=== PATIENT | female | born 1970 | race Caucasian/White ===

== ENCOUNTER 2017-05-15 17:05 | Emergency (ER) | payer MEDICAID ==
[~2017-05-15 17:05] MED LIST: ASPI81TA82 PO; ATEN-100 PO; ATOR40TA PO; BACL10TA PO; BENA25TA8 PO; BETH25 PO; BISA10SU8 PR; CETI10 PO; FURO1TAB93 PO; GABA400C5 PO; LANTUS2P SQ; LEVA500T PO; LORA-392 PO; NITR0.4S SL; NOVOLOGP2 SQ; PERC5TAB12 PO; PLAV75TA PO; POLY119S PO; PROT40TA PO; SERO50TA PO; THERM PO; VITA-83 PO; ZINC220T PO; ZOFR4TAB3 SL; [UNRECOGNIZED DRUG - CODE] IV; [UNRECOGNIZED DRUG - CODE] SQ
[2017-05-15] MEDS ORDERED: SODIUM CHLOR 0.9% 1000 ML INJ 1,000 ML IV SCH (17:14)
[2017-05-15] MEDS ORDERED: ONDANSETRON HCL 4 MG/2 ML VIAL IVP ONE (17:15)
[2017-05-15] MEDS ORDERED: SODIUM CHLORIDE 0.9% FLUSH 10 ML FLUSH IV FLUSH PRN (17:15)
[2017-05-15] MEDS ORDERED: FAMOTIDINE 20 MG/2 ML VIAL IV PUSH ONE (17:15)
--- NOTE | 2017-05-15 17:33 | PD ---
HPI Chief Complaint: GI Complaint Time Seen by Provider: 17:14 Travel History International Travel<30 days: No Contact w/Intl Traveler<30days: No Traveled to known affect area: No History of Present Illness HPI Patient is a 47-year-old female who presents to emergency room complaints of abdominal pain with nausea and vomiting. She reports that she has been feeling sick for the past few weeks, reports that she was seen at an outside hospital, reports that no one has been able to figure out why she is so sick. Reports that she is feeling nauseous, reports that she has been vomiting, patient reports that today, she has not been able to keep anything down. Patient reports no fevers or chills, denies any sick contacts. Patient reports diffuse abdominal pain. Patient with no chest pain or shortness of breath, denies any diarrhea. Patient denies any chest pain or shortness of breath. PFSH Past Medical History Anemia: Yes Asthma: Yes Autoimmune Disease: No Blood Disorders: No Anxiety: Yes Depression: No Cancer: No Cardiac Catheterization: Yes (1 STENT) Cardiovascular Problems: Yes (CAD) High Cholesterol: Yes Chest Pain: Yes Congestive Heart Failure: No Cerebrovascular Accident: Yes Coronary Artery Disease: Yes Diabetes: Yes Diminished Hearing: No Endocrine: Yes GERD: Yes Genitourinary: Yes Hypertension: Yes Immune Disorder: No Musculoskeletal: Yes (FX LEFT ANKLE) Neurologic: Yes (DIABETIC NEUROPATHY) Psychiatric: Yes Reproductive: No Respiratory: Yes Migraines: Yes Myocardial Infarction: Yes Renal Failure: Yes Thyroid Disease: No : 3 Para: 1 Miscarriage: 2 Past Surgical History AICD: No Appendectomy: Yes Arteriovenous Shunt: No Body Medical Devices: LEFT ANKLE ORIF WITH EXPOSED HARDWARE Section: Yes Cholecystectomy: Yes Insulin Pump: No Joint Replacement: No Oral Surgery: Yes (TEETH REMOVED) Pacemaker: No Tonsillectomy: Yes Other Surgery: Yes Social History Alcohol Use: No Tobacco Use: No Substance Use: No Allergies-Medications (Allergen,Severity, Reaction): Coded Allergies: cefazolin (Unverified Allergy, Severe, 03/11/17) SOB codeine (Unverified Allergy, Severe, SWEATS AND SHAKES, 03/11/17) hydromorphone (Unverified Allergy, Severe, 03/11/17) SOB morphine (Unverified Allergy, Severe, SWEATS AND SHAKES, 03/11/17) oxacillin (Unverified Allergy, Severe, 03/11/17) SOB tramadol (Unverified Allergy, Severe, 03/11/17) SOB meperidine (Unverified Allergy, Intermediate, SWELLING AT INJECTION SITE, 03/11/17) adhesive (Unverified Adverse Reaction, Severe, 03/11/17) SKIN IRRITATION Uncoded Allergies: PLASTIC TAPE (Allergy, Mild, RASH, 09/15/07) Reported Meds & Prescriptions Reported Meds & Active Scripts Active Percocet 5-325 mg (Oxycodone/Acetaminophen) Oxycodone 5/325 Acetaminophen Tab 1- 2 Tab PO Q4H PRN 30 Days Reported Zinc Sulfate 220 Mg Tab 220 Mg PO DAILY 14 Days Vitamin C (Calcium Ascorbate) 500 Mg Tab 500 Mg PO BID Thera M Plus (Multivitamins/Minerals Therap) 1 Tab Tab 1 Tab PO DAILY Dulcolax (Bisacodyl) 10 Mg Supp 20 Mg LA DAILY PRN Benadryl 25 mg tab (Diphenhydramine HCl) 25 Mg Tab 25 Mg PO Q8 PRN Zyrtec 10 Mg Tab (Cetirizine HCl) 10 Mg Tab 10 Mg PO DAILY Vancomycin 1 Gm Addvantage (Vancomycin HCl) 1 Gm Inj 1 Gm IV Q12H Seroquel 50 mg (Quetiapine Fumarate) 50 Mg Tab 50 Mg PO DAILY Protonix (Pantoprazole Sodium) 40 Mg Tab 40 Mg PO DAILY Miralax 119 Gm Bottle (Polyethylene Glycol) 119 Gm Powd 17 Gm PO DAILY 17 GRAMS = 1 TABLESPOON DISSOLVED IN 4 TO 8 OUNCES OF BEVERAGE Plavix (Clopidogrel Bisulfate) 75 Mg Tab 75 Mg PO DAILY Zofran ODT (Ondansetron HCl) 4 Mg Tab 4 Mg SL Q4 PRN FOR NAUSEA/VOMITING Novolog (Insulin Aspart) 100 Units/Ml Inj 5 Units SQ TIDAC Nitroquick (Nitroglycerin) 0.4 Mg Sub 0.4 Mg SL DIRECTED PRN Atorvastatin 40 mg (Atorvastatin Calcium) 40 Mg Tab 40 Mg PO HS Levaquin 500 Mg Tab (Levofloxacin) 500 Mg Tab 500 Mg PO DAILY Lasix (Furosemide) 40 Mg Tab 40 Mg PO DAILY Lantus (Insulin Glargine) 100 Units/Ml Inj 55 Units SQ HS Heparin 10,000 Units/Ml-Iv Add (Heparin Sodium (Porcine)) 10,000 Units/Ml Inj 5 ,000 Units SQ Q12 Gabapentin 400 Mg Cap 400 Mg PO TID Urecholine (Bethanechol Chloride) 25 Mg Tab 25 Mg PO TID Lioresal (Baclofen) 10 Mg Tab 5 Mg PO QID Ativan (Lorazepam) 0.5 Mg Tab 0.5 Mg PO Q8 PRN Atenolol 25 Mg Tab 25 Mg PO BID Aspir-81 (Aspirin) 81 Mg Tab 81 Mg PO DAILY Review of Systems General / Constitutional: No: Fever, Chills Eyes: No: Visual changes HENT: No: Headaches Cardiovascular: No: Chest Pain or Discomfort Respiratory: No: Shortness of Breath Gastrointestinal: Positive: Nausea, Vomiting, Abdominal Pain, No: Diarrhea Genitourinary: No: Dysuria Musculoskeletal: No: Pain Skin: No Rash Neurologic: No: Weakness Psychiatric: No: Depression Endocrine: No: Polydipsia Hematologic/Lymphatic: No: Easy Bruising Physical Exam Narrative GENERAL: Mild distress SKIN: Focused skin assessment warm/dry. HEAD: Atraumatic. Normocephalic. EYES: Pupils equal and round. No scleral icterus. No injection or drainage. ENT: No nasal bleeding or discharge. Mucous membranes pink and moist. NECK: Trachea midline. No JVD. CARDIOVASCULAR: Regular rate and rhythm. No murmur appreciated. RESPIRATORY: No accessory muscle use. Clear to auscultation. Breath sounds equal bilaterally. GASTROINTESTINAL: Abdomen soft, diffusely tender abdomen with guarding on exam. MUSCULOSKELETAL: Patient with left sided BKA. No clubbing. No cyanosis. No edema. NEUROLOGICAL: Awake and alert. No obvious cranial nerve deficits. Motor grossly within normal limits. Normal speech. PSYCHIATRIC: Flat mood and affect; insight and judgment normal. Data Data Last Documented VS Vital Signs Date Time Temp Pulse Resp B/P (MAP) Pulse Ox O2 Delivery O2 Flow Rate FiO2 05/15/17 18:48 107 11 179/95 (123) 98 Room Air 05/15/17 17:48 98.5 Orders Orders Complete Blood Count With Diff (05/15/17 17:14) Comprehensive Metabolic Panel (05/15/17 17:14) Lipase (05/15/17 17:14) Prothrombin Time / Inr (Pt) (05/15/17 17:14) Act Partial Throm Time (Ptt) (05/15/17 17:14) Urinalysis - C+S If Indicated (05/15/17 17:14) Ct Abd/Pel W Iv Contrast(Rout) (05/15/17 17:14) Iv Access Insert/Monitor (05/15/17 17:14) Ecg Monitoring (05/15/17 17:14) Oximetry (05/15/17 17:14) NPO (05/15/17 17:14) Ondansetron Inj (Zofran Inj) (05/15/17 17:15) Sodium Chlor 0.9% 1000 Ml Inj (Ns 1000 M (05/15/17 17:14) Sodium Chloride 0.9% Flush (Ns Flush) (05/15/17 17:15) Electrocardiogram (05/15/17 17:14) Famotidine Inj (Pepcid Inj) (05/15/17 17:15) Ed Urine Pregnancytest Poc (05/15/17 17:14) Vascular Access Team Consult/P PRN (05/15/17 17:24) Vascular Poc Ultrasound (05/15/17 ) Labs Laboratory Tests Test 05/15/17 17:45 Urine Color LIGHT-YELLOW Urine Turbidity CLEAR Urine pH 5.5 Urine Specific [place] 1.024 Urine Protein 30 mg/dL Urine Glucose (UA) 1000 mg/dL Urine Ketones 40 mg/dL Urine Occult Blood SMALL Urine Nitrite NEG Urine Bilirubin NEG Urine Urobilinogen LESS THAN 2.0 MG/DL Urine Leukocyte Esterase NEG Urine RBC 1 /hpf Urine WBC 1 /hpf Urine Squamous Epithelial Cells 1 /hpf Urine Amorphous Sediment RARE Microscopic Urinalysis Comment CULT NOT INDICATED MDM Medical Decision Making Medical Screen Exam Complete: Yes Emergency Medical Condition: Yes Medical Record Reviewed: Yes Differential Diagnosis Gastritis, gastroenteritis, electrolyte abnormality, gastric ulcer, colitis, esophagitis Narrative Course 47-year-old female with complaints of nausea, vomiting and abdominal pain for the past few weeks. Patient reports that over the past day, she has 2 episodes of emesis, request that she has not been able to eat or drink anything due to her nausea and vomiting and abdominal pain. Patient is diffusely tender to her abdomen on evaluation. Patient was placed on a threat monitoring analyst upon arrival to the emergency room. An IV line was established. CBC, CMP, CT of the abdomen and pelvis with IV contrast ordered. IV fluids as well as antiemetics were ordered for her as well. Plan to monitor patient on a threat monitoring analyst Patient signed out to oncoming physician at change of shift Nitza Rizo DO May 15, 2017 17:33
[2017-05-15 17:48] VITALS: BP 159/65; PULSE 108; RESP 12; TEMP 98.5; O2SAT 97
[2017-05-15 18:48] VITALS: BP 179/95; PULSE 107; RESP 11; O2SAT 98
[2017-05-15 18:48] LABS: BLOOD, URINE SMALL (NEG); COMMENT (UR) CULT NOT INDICATED; CULTURE IF INDICATED CULT NOT INDICATED; GLUCOSE,URINE 1000 mg/dL (NEG); KETONE, URINE 40 mg/dL (NEG); NITRITE,URINE NEG (NEG); PH, URINE 5.5 (5.0-8.5); SQUAMOUS EPITHELIAL CELL URINE 1 /hpf (0-5); URINE COLOR LIGHT-YELLOW (YELLW/STRAW)
[2017-05-15 19:16] LABS: BASOPHIL % 0.2 % (0.0-2.0); HEMATOCRIT 38.5 % (35.0-46.0); HEMO FLAGS DIFF FINAL; LYMPHOCYTE # 1.3 TH/MM3 (1.0-4.8); MEAN CELL VOLUME 88.9 FL (80.0-100.0); MEAN CORPUSCULAR HEMOGLOBIN 30.3 PG (27.0-34.0); MONO % 2.7 % (0.0-8.0); NEUT % 89.1 % (16.0-70.0); PLATELET COUNT 327 TH/MM3 (150-450); RED BLOOD COUNT 4.33 MIL/MM3 (4.00-5.30); WHITE BLOOD COUNT 15.7 TH/MM3 (4.0-11.0)
[2017-05-15 19:22] LABS: APTT (PATIENT) 22.8 SEC (24.3-30.1)
[2017-05-15 19:41] LABS: ALKALINE PHOSPHATASE 91 U/L (45-117); ALT (GPT) 17 U/L (10-53); ANION GAP 14 MEQ/L (5-15); AST (GOT) 18 U/L (15-37); BICARBONATE 22.9 MEQ/L (21.0-32.0); BLOOD UREA NITROGEN 48 MG/DL (7-18); CHLORIDE 95 MEQ/L (98-107); GLOMERULAR FILTRATION RATE 40 ML/MIN (>89); POTASSIUM 5.1 MEQ/L (3.5-5.1); SODIUM (NA) 132 MEQ/L (136-145); TOTAL BILIRUBIN ADULT 0.4 MG/DL (0.2-1.0)
[2017-05-15] MEDS ORDERED: SODIUM CHLOR 0.9% 1000 ML INJ 1,000 ML IV ONE (20:00)
[2017-05-15] MEDS ORDERED: INSULIN HUMAN REGULAR 1,000 UNITS/10 ML VIAL SQ ONE (20:00)
[2017-05-15] MEDS ORDERED: IOHEXOL 350 MG/ML 10 ML VIAL (for RAD DIAG) IVCONTRAST ONE (20:16)
--- NOTE | 2017-05-15 20:29 | RADRPT ---
EXAM DATE/TIME: 05/15/2017 20:04 [facility] COMPARISON: CT ABDOMEN & PELVIS W/O CONTRAST, September 29, 2014, 1:58. INDICATIONS : Diffuse abdominal pain with nausea and vomiting. IV CONTRAST: 70 cc Omnipaque 350 (iohexol) IV ORAL CONTRAST: No oral contrast ingested. RADIATION DOSE: 10.21 CTDIvol (mGy) MEDICAL HISTORY : Cardiovascular disease. Hypertension. Diabetes. Renal failure. CVA. [place]. SURGICAL HISTORY : Appendectomy. Cholecystectomy. section. ENCOUNTER: Initial ACUITY: 2 days PAIN SCALE: 10/10 LOCATION: All quadrants. TECHNIQUE: Volumetric scanning of the abdomen and pelvis was performed. Using automated exposure control and ad justment of the mA and/or kV according to patient size, radiation dose was kept as low as reasonably achievable to obtain optimal diagnostic quality images. DICOM format image data is available electro nically for review and comparison. FINDINGS: LOWER LUNGS: The visualized lower lungs are clear. LIVER: Homogeneous density without lesion. There is no dilation of the biliary tree. Clips in place prior c holecystectomy SPLEEN: Normal size without lesion. PANCREAS: Within normal limits. KIDNEYS: Normal in size and shape. There is no mass, stone or hydronephrosis. ADRENAL GLANDS: Within normal limits. VASCULAR: There is no aortic aneurysm. BOWEL/MESENTERY: The stomach, small bowel, and colon demonstrate no acute abnormality. There is no free intraperitone al air or fluid. Clips in place prior appendectomy ABDOMINAL WALL: Within normal limits. RETROPERITONEUM: There is no lymphadenopathy. BLADDER: No wall thickening or mass. REPRODUCTIVE: Within normal limits. INGUINAL: There is no lymphadenopathy or hernia. MUSCULOSKELETAL: Within normal limits for patient age. CONCLUSION: No acute intra-abdominal or pelvic process. Prior cholecystectomy and appendectomy. Dennis Brown MD on May 15, 2017 at 20:23 Board Certified Radiologist. This report was verified electronically.
[2017-05-15] MEDS ORDERED: diphenhydrAMINE HCL 50 MG/ML VIAL IV PUSH ONE (20:45)
[2017-05-15] MEDS ORDERED: PROMETHAZINE INJ 25 MG/ML VIAL IM ONE (20:45)
--- NOTE | 2017-05-15 22:20 | PD ---
Physical Exam Narrative Patient signed out to me by Dr. Rizo. Please see her documentation for complete details. Briefly, patient is a 47-year-old female complaining of abdominal pain with nausea and vomiting. Belly is soft and nontender. Data Data Last Documented VS Vital Signs Date Time Temp Pulse Resp B/P (MAP) Pulse Ox O2 Delivery O2 Flow Rate FiO2 05/15/17 18:48 107 11 179/95 (123) 98 Room Air 05/15/17 17:48 98.5 Orders Orders Complete Blood Count With Diff (05/15/17 17:14) Comprehensive Metabolic Panel (05/15/17 17:14) Lipase (05/15/17 17:14) Prothrombin Time / Inr (Pt) (05/15/17 17:14) Act Partial Throm Time (Ptt) (05/15/17 17:14) Urinalysis - C+S If Indicated (05/15/17 17:14) Ct Abd/Pel W Iv Contrast(Rout) (05/15/17 17:14) Iv Access Insert/Monitor (05/15/17 17:14) Ecg Monitoring (05/15/17 17:14) Oximetry (05/15/17 17:14) NPO (05/15/17 17:14) Ondansetron Inj (Zofran Inj) (05/15/17 17:15) Sodium Chlor 0.9% 1000 Ml Inj (Ns 1000 M (05/15/17 17:14) Sodium Chloride 0.9% Flush (Ns Flush) (05/15/17 17:15) Electrocardiogram (05/15/17 17:14) Famotidine Inj (Pepcid Inj) (05/15/17 17:15) Ed Urine Pregnancytest Poc (05/15/17 17:14) Vascular Access Team Consult/P PRN (05/15/17 17:24) Vascular Poc Ultrasound (05/15/17 ) Insulin Human Regular Inj (Novolin R Inj (05/15/17 20:00) Sodium Chlor 0.9% 1000 Ml Inj (Ns 1000 M (05/15/17 20:00) Iohexol 350 Inj (Omnipaque 350 Inj) (05/15/17 20:16) Diphenhydramine Inj (Benadryl Inj) (05/15/17 20:45) Promethazine Inj (Phenergan Inj) (05/15/17 20:45) Labs Laboratory Tests Test 05/15/17 17:45 05/15/17 18:44 Urine Color LIGHT-YELLOW Urine Turbidity CLEAR Urine pH 5.5 Urine Specific [place] 1.024 Urine Protein 30 mg/dL Urine Glucose (UA) 1000 mg/dL Urine Ketones 40 mg/dL Urine Occult Blood SMALL Urine Nitrite NEG Urine Bilirubin NEG Urine Urobilinogen LESS THAN 2.0 MG/DL Urine Leukocyte Esterase NEG Urine RBC 1 /hpf Urine WBC 1 /hpf Urine Squamous Epithelial Cells 1 /hpf Urine Amorphous Sediment RARE Microscopic Urinalysis Comment CULT NOT INDICATED White Blood Count 15.7 TH/MM3 Red Blood Count 4.33 MIL/MM3 Hemoglobin 13.1 GM/DL Hematocrit 38.5 % Mean Corpuscular Volume 88.9 FL Mean Corpuscular Hemoglobin 30.3 PG Mean Corpuscular Hemoglobin Concent 34.0 % Red Cell Distribution Width 14.0 % Platelet Count 327 TH/MM3 Mean Platelet Volume 9.8 FL Neutrophils (%) (Auto) 89.1 % Lymphocytes (%) (Auto) 8.0 % Monocytes (%) (Auto) 2.7 % Eosinophils (%) (Auto) 0.0 % Basophils (%) (Auto) 0.2 % Neutrophils # (Auto) 14.0 TH/MM3 Lymphocytes # (Auto) 1.3 TH/MM3 Monocytes # (Auto) 0.4 TH/MM3 Eosinophils # (Auto) 0.0 TH/MM3 Basophils # (Auto) 0.0 TH/MM3 CBC Comment DIFF FINAL Differential Comment Prothrombin Time 11.0 SEC Prothromb Time International Ratio 1.0 RATIO Activated Partial Thromboplast Time 22.8 SEC Blood Urea Nitrogen 48 MG/DL Creatinine 1.39 MG/DL Random Glucose 483 MG/DL Total Protein 7.9 GM/DL Albumin 4.0 GM/DL Calcium Level 9.3 MG/DL Alkaline Phosphatase 91 U/L Aspartate Amino Transf (AST/SGOT) 18 U/L Alanine Aminotransferase (ALT/SGPT) 17 U/L Total Bilirubin 0.4 MG/DL Sodium Level 132 MEQ/L Potassium Level 5.1 MEQ/L Chloride Level 95 MEQ/L Carbon Dioxide Level 22.9 MEQ/L Anion Gap 14 MEQ/L Estimat Glomerular Filtration Rate 40 ML/MIN Lipase 116 U/L [facility] Supervised Visit with KATTY: No Narrative Course Labs show an elevated white blood cell count 15.7. Her sugar was elevated to 483. CT abdomen and pelvis shows no acute abnormalities. She was given IV fluids, insulin. Her blood sugar improved to 301. Patient did have another episode of vomiting after the CAT scan and said she "felt itchy." However, she had no signs of hives or any reaction. She was given Benadryl and she requested Phenergan. After that, she was sleeping comfortably. Patient will be discharged home. She is advised drink plenty of fluids. Advised to return to the ED as needed for any worsening symptoms. Advised follow-up with her primary care doctor. Diagnosis Primary Impression: Abdominal pain Qualified Codes: R10.84 - Generalized abdominal pain Additional Impressions: Nausea & vomiting Qualified Codes: R11.2 - Nausea with vomiting, unspecified Hyperglycemia Patient Instructions: Abdominal Pain (ED), Acute Nausea and Vomiting (ED), Diabetic Hyperglycemia (ED), General Instructions Additional Instruction: Drink plenty of fluids. Eat a bland diet. Follow-up with her doctor. Return to the ED as needed for any worsening symptoms. Disposition: 01 DISCHARGE HOME Condition: Stable Massiel Brown MD May 15, 2017 22:20
[2017-05-15 23:54] VITALS: BP 151/63; TEMP 98.4
--- NOTE | 2017-05-16 21:31 | EKG ---
Date Performed: 05/15/2017 Time Performed: 18:57:10 PTAGE: 47 years EKG: SINUS TACHYCARDIA NONSPECIFIC ST & T-WAVE ABNORMALITY ABNORMAL RHYTHM ECG PREVIOUS TRACING : 09/28/2014 20.05 Compared to prior tracing no significant change DOCTOR: Jorge Prieto Interpretating Date/Time 05/16/2017 21:29:39
== END 2017-05-15 23:56 | disposition home or self-care (01) ==
LOC: NEPC 17:05
DX: R10.84 Generalized abdominal pain (principal); R11.2 Nausea with vomiting, unspecified; E11.65 Type 2 diabetes mellitus with hyperglycemia; D64.9 Anemia, unspecified; J45.909 Unspecified asthma, uncomplicated; I25.10 Atherosclerotic heart disease of native coronary artery without angina pectoris; I10 Essential (primary) hypertension; R94.31 Abnormal electrocardiogram [ECG] [EKG]
CPT/HCPCS: 74177; 80053; 81001; 83690; 84703; 85025; 85610; 85730; 93005; 96361; 96372; 96374; 96375; 99285; J1200; J1815; J2405; J2550; J7030; Q9967